=== PATIENT | male | born 1965 | race Caucasian/White ===

== ENCOUNTER 2017-12-02 15:24 | Emergency (ER) | payer OTHER, MEDICAID ==
[~2017-12-02] VITALS: Ht 185.4 cm; Wt 93.0 kg
[2017-12-02 16:04] VITALS: BP 143/90
[2017-12-02] MEDS ORDERED: BACITRACIN TOP OINT 1 UD PKG TOP ONE (16:30)
[2017-12-02] MEDS ORDERED: LIDOCAINE 1% (LOCAL ANESTH.) PF 5ml SDV ID ONE (16:30)
[2017-12-02] MEDS ORDERED: TETANUS-DIPTH-ACEL PERTUSSIS 0.5ML SYRG IM ONE (17:00)
== END 2017-12-02 18:37 | disposition home or self-care (01) ==
LOC: ER 15:28
DX: S89.91XA Unspecified injury of right lower leg, initial encounter (principal); S99.921A Unspecified injury of right foot, initial encounter; W10.9XXA Fall (on) (from) unspecified stairs and steps, initial encounter; Y93.89 Activity, other specified; Y99.8 Other external cause status; Y92.89 Other specified places as the place of occurrence of the external cause
CPT/HCPCS: 12002; 90471; 90715